=== PATIENT | female | born 1985 | race Two or more races ===

== ENCOUNTER 2020-07-02 16:02 | Inpatient (IN) | payer MEDICAID ==
[~2020-07-02] VITALS: Ht 175.3 cm; Wt 74.9 kg
--- NOTE | 2020-07-02 16:10 | NUR ---
Patient to ER bed 04 to gown for evaluation. Side rails up.
[2020-07-02 16:14] VITALS: BP_SYST 167
--- NOTE | 2020-07-02 16:18 | NUR ---
Pt. arrived c/o epigastric pain x 1 hour rates it 10/10 on pain scale, some nausea no emesis, denies anyother complaints.
--- NOTE | 2020-07-02 16:21 | NUR ---
ER at bedside examining patient.
[2020-07-02] MEDS ORDERED: MORPHINE 4 MG INJ. 4 MG/ML VIAL IVP ONE (16:30)
[2020-07-02] MEDS ORDERED: ONDANSETRON HCL 4 MG/2 ML VIAL IVP ONE (16:30)
--- NOTE | 2020-07-02 16:50 | NUR ---
# 22 gauge angiocath placed to RAC. Use of asceptic technique. Opsite placed over site. Blood return noted. Blood for lab drawn from site. Flushed with 10 cc of normal saline. No evidence of infiltration noted. Patient tolerated well.
[2020-07-02 17:05] LABS: POTASSIUM 3.8 mmol/L (3.5-5.1)
[2020-07-02 17:06] LABS: ALBUMIN 3.6 g/dL (3.4-4.8); CALCIUM 9.1 mg/dL (8.4-11.0); CREATININE 0.91 mg/dL (0.55-1.30); TOTAL BILIRUBIN 0.2 mg/dL (0.0-1.0)
[2020-07-02 17:07] LABS: BILIRUBIN,URINE NEGATIVE (NEGATIVE); BLOOD, URINE NEGATIVE (NEGATIVE); CLARITY/URINE SL CLOUDY (CLEAR); COLOR,URINE YELLOW (YELLOW); GLUCOSE,URINE NEGATIVE (NEGATIVE); KETONES,URINE NEGATIVE (NEGATIVE); LEUKOCYTE ESTERASE ,URINE TRACE (NEGATIVE); NITRITE, URINE NEGATIVE (NEGATIVE); PROTEIN URINE NEGATIVE (NEGATIVE); UROBILINOGEN,URINE 0.2 (0.2-1.0)
--- NOTE | 2020-07-02 17:10 | NUR ---
Patient ambulated to radiology, accompanied by staff.
[2020-07-02 17:37] LABS: RBC,URINE 0-3 /HPF (0-3); WBC,URINE NONE SEEN /HPF (0-3)
[2020-07-02 17:38] LABS: BACTERIA,URINE FEW /HPF (None Seen)
[2020-07-02 17:39] LABS: YEAST,URINE None Seen /HPF (None Seen)
[2020-07-02 17:55] LABS: CORRECTED WHITE BLOOD COUNT 10.2 K/uL (4.5-11.0); RED BLOOD CELL COUNT(AUTO) 4.48 MIL/uL (4.2-6.2); WHITE BLOOD COUNT (AUTO) 10.2 K/uL (4.8-10.8)
[2020-07-02 17:56] LABS: HEMATOCRIT 38.8 % (36-48); HEMOGLOBIN 13.2 g/dL (12.0-16.0); MEAN CORPUSCULAR HEMOGLOBIN 29 pg (27-31); MEAN CORPUSCULAR HGB CONC 34 % (32-36); MEAN CORPUSCULAR VOLUME 87 fL (79.0-98.0); NEUTROPHILS % (AUTO) 62.9 % (40.0-70.0); PLATELET COUNT (AUTO) 301 K/uL (130-430)
[2020-07-02 17:57] LABS: BASOPHILS % (AUTO) 0.7 % (0.0-2.0); EOSINOPHILS % (AUTO) 2.5 % (0.0-4.0); LYMPHOCYTES % (AUTO) 27.1 % (20.5-51.5); MONOCYTES % (AUTO) 6.8 % (1.7-9.3); NEUTROPHILS # (AUTO) 6.4 K/uL (1.8-7.7)
[2020-07-02 17:58] LABS: BASOPHILS # (AUTO) 0.1 K/uL (0.0-0.2); EOSINOPHILS # (AUTO) 0.3 K/uL (0.0-0.4); LYMPHOCYTES # (AUTO) 2.8 K/uL (1.0-5.5); MONOCYTES # (AUTO) 0.7 K/uL (0.0-1.0)
--- NOTE | 2020-07-02 18:07 | NUR ---
covid swab sent, Dr. Lopez discussed POC with pt. and the need to admit
[2020-07-02] MEDS ORDERED: PIPERACILLIN/TAZOBACTAM 3.375 GM/VIAL (ZOSYN) IV ONE (18:14)
[2020-07-02] MEDS ORDERED: PIPERACILLIN/TAZO 3.375 GM in NS 50 ML IV ONE (18:15)
--- NOTE | 2020-07-02 18:21 | NUR ---
med rec. and pt. belonging form done
--- NOTE | 2020-07-02 18:29 | NUR ---
Admit orders rec'd from Dr. Escalante, called [facility] for bed awaiting call back from conveyor line battery charger
[2020-07-02] MEDS ORDERED: ONDANSETRON HCL 4 MG/2 ML VIAL IVP PRN (19:00)
[2020-07-02] MEDS ORDERED: MORPHINE 2 MG/ML INJ. SYRINGE IVP PRN (19:00)
[2020-07-02] MEDS ORDERED: METOCLOPRAMIDE HCL 10 MG/2 ML VIAL IVP PRN (19:00)
[2020-07-02] MEDS ORDERED: cefTRIAXone 1 GM IVPB PREMIX 50 ML IV SCH (19:00)
[2020-07-02] MEDS ORDERED: MORPHINE 4 MG INJ. 4 MG/ML VIAL IVP PRN (19:00)
[2020-07-02] MEDS ORDERED: ACETAMINOPHEN 325 MG TABLET PO PRN (19:00)
--- NOTE | 2020-07-02 19:06 | NUR ---
report to angela, awaiting bed placement in med surg.
--- NOTE | 2020-07-02 19:07 | NUR ---
Received endorsement from day shift, [id number], breathing spontaenously at room air, not in distress. Admitted as a case of Acute Cholecystitis under the care of Dr. Escalante, awaiting bed to Med/surg Vital signs stable
--- NOTE | 2020-07-02 20:23 | NUR ---
Transfer to MED/SURG 134B via BLS protocol. IV present no signs or symptoms of infiltration. Report given to JOEY Willis.
--- NOTE | 2020-07-02 20:51 | NUR ---
ADMISSION: The patient, DE LA SNOWDENSTEFANY SKELTON, 34 y/o, F admitted by JOSIE MCKENNA MD, was given written information regarding hospital policies, unit procedures and contact persons safety measures implemented PROCEDURES EXPLAINED Valuables were checked and ORDERS CARRIED OUT patient verbalize understanding .
[2020-07-02] MEDS: D5NS 1,000 ML IV SCH (21:07)
[2020-07-02] MEDS ORDERED: cefTRIAXone 1 GM IVPB PREMIX 50 ML IV ONE (21:41)
[2020-07-03] VITALS (7 sets, daily range): BP systolic 102–138
--- NOTE | 2020-07-03 03:40 | NUR ---
TYLENOL 650 MG PO given for pain general & helpful .
--- NOTE | 2020-07-03 04:35 | NUR ---
HOURLY ROUNDING patient Resting call villalba with patient chest movement symmetrical unlabored .
[2020-07-03] MEDS: D5NS 1,000 ML IV SCH ×2 (06:27→15:00)
--- NOTE | 2020-07-03 07:45 | NUR ---
OPENING NOTES: RECEIVED REPORT FROM RADIO OPERATOR NURSE. PATIENT IS AWAKE LAYING DOWN IN BED. TOLERATED OXYGEN ON ROOM AIR WITH NO DISTRESS NOTED. IV LINE PATENT AND INTACT WITH NO INFILTRATION NOTED. PATIENT IN STABLE CONDITION. SAFETY, FALL, AND ASPIRATION PRECAUTIONS ARE IN PLACE. BED LOCKED IN LOWEST POSITION AND CALL LIGHT IN REACH. WILL CONTINUE TO MONITOR PATIENT
--- NOTE | 2020-07-03 13:00 | NUR ---
DR. JOHNSON CALLED AND SAID PATIENT WILL NOT BE HAVING SURGERY TODAY. INSTEAD CAN DO ELECTIVE SURGERY AN OUT PATIENT. SPOKE TO PATIENT AND INSISTED THAT SHE WANTS TO DO SURGERY HERE AT [facility]. CALLED DR. MCKENNA AWAITING FOR CALL BACK.
--- NOTE | 2020-07-03 15:00 | NUR ---
PATIENT REFUSED IV FLUIDS. SHE STATED SHE WANTS TO GO HOME. MD MADE AWARE OF THE PATIENT WANTING TO GO HOME.
[2020-07-03] MEDS ORDERED: ACETAMINOPHEN 325 MG TABLET PO PRN (16:00)
--- NOTE | 2020-07-03 19:15 | NUR ---
INITIAL NOTES: WHILE RECEIVING REPORT FROM DAY SHIFT RN , PT STATED SHE "WANTS TO GO HOME AND HER KIDS ARE WAITING THERE FOR HER" . PT STATED THAT SHE WAS WAITING FROM AFTER NOON TO GO HOME , DAY SHIFT RN TOLD HER SHE CAN LEAVE HER BY 5 PM AND THEN 7 PM . ALSO PT STATED SURGEON TOLD HER THAT "SHE DOESN'T NEED ANY SURGERY AT THIS TIME AND SHE CAN SEE HIM OUT PT AND CAN HAVE HER SURGERY DONE". 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 EXPLAINED TO PT THAT SHE IS ON ANTIBIOTICS AND NO ORDER FOR DC AT THIS TIME . PTS IV FLUID WAS NOT INFUSING WHILE MAKING ROUNDS PER RN PT REFUSED IT . NOTICED IV TO THE R AC , NO S/S OF ANY INFILTRATION NOTICED .INFORMED PT THAT RN WILL BE BACK AFTER RECEIVING OTHER PTS REPORT.
--- NOTE | 2020-07-03 19:30 | NUR ---
CLOSING NOTES: PATIENT IS AWAKE LAYING DOWN IN BED. TOLERATED OXYGEN ON ROOM AIR WITH NO DISTRESS NOTED. IV LINE PATENT AND INTACT WITH NO INFILTRATION NOTED. DENIES ANY PAIN AT THE MOMENT. PATIENT IN STABLE CONDITION. SAFETY, FALL, AND ASPIRATION PRECAUTIONS REMAINED IN PLACE. BED LOCKED IN LOWEST POSITION AND CALL LIGHT IN REACH. WILL ENDORSE PATIENT CARE TO ONCOMING FSR NURSE.
--- NOTE | 2020-07-03 19:40 | NUR ---
RN NOTES: WENT BACK TO PT ROOM , EXPLAINED TO HER WHY SHE IS HERE , NOTIFIED HER THAT THERE IS NO ORDER TO DC HER HOME AT THIS TIME ; PT IS VERY ADAMANT THAT SHE WANTS TO GO HOME TONIGHT SINCE IS NOT DOING SURGERY , PT STATED SHE DONT HAVE ANY PAIN , NAUSEA OR VOMITING AT THIS TIME . OFFERED HER ANTIBIOTIC SCHEDULED . PT REFUSED . INFORMED HER THAT WILL CALL MD AND WILL LET HER KNOW HIS DECISION .
--- NOTE | 2020-07-03 19:48 | NUR ---
PAGED I PAGED DR. MCKENNA I SPOKE WITH BRITTANY EXCHANGE
--- NOTE | 2020-07-03 20:00 | NUR ---
RN NOTES; PT CALLED, WENT TO THE ROOM PT STATED SHE DON'T WANT TO STAY HERE ANYMORE , INFORMED HER THAT MD DIDNT CALL BACK YET , PT STATED SHE WANTS TO LEAVE TONIGHT , INFORMED HER THAT SHE CAN LEAVE AGAINST MEDICAL ADVICE IF SHE REALLY DON'T WANT TO STAY , BUT RN CANNOT DC HER . PT STATED SHE WANTS TO LEAVE AGAINST MEDICAL ADVISE , INFORMED HER THE CONSEQUENCES OF LEAVING AGAINST MEDICAL ADVISE . PT STILL WANTS TO GO HOME .( USED PRESS READER TO TALK WITH THE PT ) OFFERED ANTIBIOTIC BEFORE LEAVING , PT REFUSED IT .
--- NOTE | 2020-07-03 20:12 | NUR ---
AMA: Patient does not wish to proceed with medical care recommended by DR MCKENNA . Patient given information related to possible complications, up to and including , which could occur as a result of leaving hospital at this time. Patient verbalizes understanding of risks involved leaving against medical advice. Patient has signed AMA form. Pts id and iv cath removed , iv cath tip is intact, no active bleeding . security accompanies pt ,pt walked outside with steady gait .
--- NOTE | 2020-07-03 20:23 | NUR ---
DR TAMEKA Sanders, WHO IS FIELD CANE SCALE CLERK FOR DR MCKENNA NOTIFIED THAT PT LEFT AMA
== END 2020-07-03 20:12 | disposition left against medical advice (07) ==
LOC: SED 16:02 → SMU 18:23
PROVIDERS: ADMIT Internal Medicine Hospice and Palliative Medicine; ATTEND Internal Medicine Hospice and Palliative Medicine
DX: K80.66 Calculus of gallbladder and bile duct with acute and chronic cholecystitis without obstruction (principal); E66.9 Obesity, unspecified; Z20.822 Contact with and (suspected) exposure to COVID-19; Z68.24 Body mass index [BMI] 24.0-24.9, adult
CPT/HCPCS: 36415; 76700-TC; 80053; 81000; 83605; 83690; 85025; 87040-TC; 96365; 96375; 99285; J0696; J2270; J2405; J2543; J7042

== ENCOUNTER 2020-07-08 21:52 | Emergency (ER) | payer MEDICAID ==
[~2020-07-08] VITALS: Ht 167.6 cm; Wt 90.7 kg
[2020-07-08 22:10] VITALS: BP_SYST 161
--- NOTE | 2020-07-08 22:15 | NUR ---
Patient triaged and placed in waiting room. Patient appears in no acute distress at this time. Awaiting available bed, and MD notified of need for MSE.
--- NOTE | 2020-07-08 22:19 | NUR ---
Patient ambulatory to bed 2 for evaluation
--- NOTE | 2020-07-08 22:30 | NUR ---
AWAKE, ALERT. SPEAKS BROKEN ARMENIAN. STATES THAT SHE HAD BEEN HAVING ABDOMINAL PAIN FOR THE LAST 2 HRS, 10/09. SHE SAID SHE ATE CARNE ASADA AT HOME. SHE SAID SHE HAD THE SAME PAIN LAST THURSDAY, THEY DID A CT SCAN AND SHE HAS POSSIBLE STONES IN THE GALL BLADDER.
--- NOTE | 2020-07-08 22:40 | NUR ---
ER at bedside examining patient.
[2020-07-08] MEDS ORDERED: NACL 0.9% 1,000 ML IV ONE (22:45)
[2020-07-08 22:54] LABS: BILIRUBIN,URINE NEGATIVE (NEGATIVE); BLOOD, URINE NEGATIVE (NEGATIVE); COLOR,URINE YELLOW (YELLOW); GLUCOSE,URINE NEGATIVE (NEGATIVE); KETONES,URINE NEGATIVE (NEGATIVE); LEUKOCYTE ESTERASE ,URINE 1+ (NEGATIVE); NITRITE, URINE NEGATIVE (NEGATIVE); PROTEIN URINE NEGATIVE (NEGATIVE); UROBILINOGEN,URINE 0.2 (0.2-1.0)
[2020-07-08 22:56] LABS: CLARITY/URINE HAZY (CLEAR)
[2020-07-08 23:12] LABS: BACTERIA,URINE MANY /HPF (None Seen); RBC,URINE 0-3 /HPF (0-3)
[2020-07-08 23:37] LABS: BASOPHILS # (AUTO) 0.1 K/uL (0.0-0.2); BASOPHILS % (AUTO) 0.6 % (0.0-2.0); EOSINOPHILS # (AUTO) 0.2 K/uL (0.0-0.4); EOSINOPHILS % (AUTO) 1.8 % (0.0-4.0); LYMPHOCYTES # (AUTO) 2.2 K/uL (1.0-5.5); LYMPHOCYTES % (AUTO) 17.8 % (20.5-51.5); MEAN CORPUSCULAR HEMOGLOBIN 29 pg (27-31); MEAN CORPUSCULAR HGB CONC 33 % (32-36); MEAN CORPUSCULAR VOLUME 87 fL (79.0-98.0); MONOCYTES # (AUTO) 0.8 K/uL (0.0-1.0); MONOCYTES % (AUTO) 6.5 % (1.7-9.3); NEUTROPHILS # (AUTO) 8.9 K/uL (1.8-7.7); NEUTROPHILS % (AUTO) 73.3 % (40.0-70.0); PLATELET COUNT (AUTO) 300 K/uL (130-430); RED BLOOD CELL COUNT(AUTO) 4.48 MIL/uL (4.2-6.2); RED CELL DISTRIBUTION WIDTH 14.2 % (9.0-15.0); WHITE BLOOD COUNT (AUTO) 12.2 K/uL (4.8-10.8)
[2020-07-08 23:52] LABS: CALCIUM 8.8 mg/dL (8.4-11.0); CREATININE 0.95 mg/dL (0.55-1.30); POTASSIUM 3.6 mmol/L (3.5-5.1)
--- NOTE | 2020-07-09 00:05 | NUR ---
TO CT OF ABD AND PELVIS.
[2020-07-09 00:06] LABS: ALBUMIN 3.8 g/dL (3.4-4.8); TOTAL BILIRUBIN 0.4 mg/dL (0.0-1.0)
[2020-07-09] MEDS ORDERED: cefTRIAXone 1 GM VIAL ONE (00:12)
[2020-07-09] MEDS ORDERED: cefTRIAXone 1 GM in D5W 50 ML IV ONE (00:15)
[2020-07-09] MEDS ORDERED: KETOROLAC TROMETHAMINE 30 MG VIAL IVP ONE (00:15)
--- NOTE | 2020-07-09 01:00 | NUR ---
RESTING. DENIES PAIN. GOES TO TOILET WITHOUT INCIDENCE.
--- NOTE | 2020-07-09 02:00 | NUR ---
RESTING. NO DISTRESS NOTED.
[2020-07-09] MEDS ORDERED: PRO40 PO (02:52)
[2020-07-09] MEDS ORDERED: CEPH250C PO (02:54)
[2020-07-09 03:05] VITALS: BP_SYST 161
--- NOTE | 2020-07-09 03:05 | NUR ---
Patient given written and verbal discharge instructions and verbalizes understanding. ER DR DENITA DELGADO discussed with patient the results and treatment provided. Patient in stable condition. ID arm band removed. IV catheter removed intact and dressing applied, no active bleeding. Rx of PROTONIX AND KEFLEX given. Patient educated on pain management and to follow up with PMD. Pain Scale . Opportunity for questions provided and answered. Medication side effect fact sheet provided.
== END 2020-07-09 03:05 | disposition home or self-care (01) ==
LOC: SED 21:52
DX: K29.70 Gastritis, unspecified, without bleeding (principal); N39.0 Urinary tract infection, site not specified
CPT/HCPCS: 36415; 74176; 76376; 80053; 81000; 81025; 82150; 83690; 85025; 85610; 87086; 96361; 96365; 96375; 99284; J0696; J1885; J7030